=== PATIENT | male | born 1970 | race Caucasian/White ===

== ENCOUNTER 2023-08-20 05:33 | Emergency (ER) | payer OTHER ==
[2023-08-20 05:56] VITALS: TEMP 97.8; BMI 26.5
[2023-08-20] MEDS ORDERED: DIPHTH,PERTUSS(ACELL),TET 0.5 ML DISP.SYRIN IM ONE (08:01)
[2023-08-20] MEDS: DIPHTH,PERTUSS(ACELL),TET 0.5 ML DISP.SYRIN IM ONE (08:20)
[2023-08-20 08:24] VITALS: BP 159/92; PULSE 72; RESP 18
== END 2023-08-20 08:20 | disposition home or self-care (01) ==
LOC: JER 05:33
PROC: 3E0234Z Introduction of Serum, Toxoid and Vaccine into Muscle, Percutaneous Approach (ICD-10-PCS; principal; 2023-08-20)
DX: S05.02XA Injury of conjunctiva and corneal abrasion without foreign body, left eye, initial encounter (principal); H57.12 Ocular pain, left eye; H53.142 Visual discomfort, left eye; X58.XXXA Exposure to other specified factors, initial encounter; Z23 Encounter for immunization
CPT/HCPCS: 90471; 90715; 99283-25